=== PATIENT | female | born 1935 | race Caucasian/White ===

== ENCOUNTER → 2017-03-28 | Outpatient (CLI) | payer OTHER ==
[~2017-03-28] MED LIST: AMLO-110 PO; CHOL1000 PO; CITA40TA12 PO; GLC/500 PO; HYDR-5688 PO; HYDR25TA4 PO; TRAZ50TA35 PO
[2017-03-28 13:35] LABS: BASO % 0.4 %; BASO ABS # 0.03 K/uL (0-0.2); COMPLETE YES; EOS % 3.5 %; HEMATOCRIT 42.1 % (37-47); IG% 0.1 %; LYMPH % 17.6 %; LYMPH ABS # 1.35 K/uL (1.2-3.4); MEAN CORPUSCULAR HGB CONC 33.7 g/dl (32-36); MEAN PLATELET VOLUME 10.1 fL (7.4-10.4); MONO % 8.7 %; NEUT % 69.7 %; PLATELET COUNT 225 K/uL (130-400); RED BLOOD COUNT 4.73 M/uL (4.2-5.4); WHITE BLOOD COUNT 7.66 K/uL (4.8-10.8)
[2017-03-28 14:22] LABS: ESTIMATED AVERAGE GLUCOSE 134 mg/dl; HA1C FLAG Normal (Normal)
[2017-03-28 15:04] LABS: BLOOD UREA NITROGEN 13 mg/dl (7-18); CALCIUM 10.2 mg/dl (8.5-10.1); CARBON DIOXIDE 28 mmol/L (21-32); CHLORIDE 100 mmol/L (98-107); CREATININE 0.95 mg/dl (0.60-1.20); GLUCOSE 115 mg/dl (70-99); POTASSIUM 3.6 mmol/L (3.5-5.1); SODIUM 136 mmol/L (136-145)
[2017-03-28 15:13] LABS: CHOLESTEROL 209 mg/dl (0-200); CHOLESTEROL/HDL RATIO 3.6; HDL CHOLESTEROL 58 mg/dl; LDL CHOLESTEROL CALCULATED 131 mg/dl; TRIGLYCERIDES 99 mg/dl (0-150); VERY LOW DENSITY LIPOPROT CALC 20 mg/dl
== END | disposition home or self-care (01) ==
LOC: C.LABBC 11:15
PROVIDERS: ATTEND Physician Assistant Medical
DX: E11.9 Type 2 diabetes mellitus without complications (principal); I10 Essential (primary) hypertension; E78.5 Hyperlipidemia, unspecified; F32.9 Major depressive disorder, single episode, unspecified; R58 Hemorrhage, not elsewhere classified

== ENCOUNTER → 2017-03-30 | Outpatient (CLI) | payer OTHER | END | disposition home or self-care (01) | LOC: C.PATH 08:42 | PROVIDERS: ATTEND Physician Assistant Medical | DX: C85.11 Unspecified B-cell lymphoma, lymph nodes of head, face, and neck (principal); R22.1 Localized swelling, mass and lump, neck ==

== ENCOUNTER → 2017-04-19 | Outpatient (CLI) | payer OTHER ==
--- NOTE | 2017-04-19 18:20 | DIAGNOSTIC IMAGING REPORT ---
CHEST 2 VIEWS ROUTINE CLINICAL HISTORY: 81 years-old Female presenting with lump in the neck, B-cell lymphoproliferative disorder. TECHNIQUE: PA and lateral views of the chest were obtained. COMPARISON: 01/12/2006. FINDINGS: Surgical clips may be present in the right axilla, new from prior. Stable eventration of the right hemidiaphragm. Cardiomediastinal silhouette unremarkable for atherosclerosis of the aortic arch, new from prior. Fullness at the right hilum noted. Stable bandlike opacity at the left lung base, likely scarring. No other focal infiltrate. No pleural effusion or pneumothorax. Osseous structures and upper abdomen normal. IMPRESSION: 1. Fullness at the right hilum, which has an altered configuration from prior exam and could raise concern for hilar lymphadenopathy. 2. No acute cardiopulmonary disease. Electronically signed by: Donte Cornejo M.D. 04/19/2017 6:18 PM Dictated Date/Time: 04/19/2017 6:15 PM
== END | disposition home or self-care (01) ==
LOC: C.RAD 17:36
PROVIDERS: ATTEND Surgery
DX: D47.9 Neoplasm of uncertain behavior of lymphoid, hematopoietic and related tissue, unspecified (principal); R22.1 Localized swelling, mass and lump, neck

== ENCOUNTER 2017-04-25 07:58 | Day surgery (SDC) | payer OTHER ==
[2017-04-24 16:04] VITALS: BMI 25.0
[~2017-04-25] VITALS: Ht 157.5 cm; Wt 62.3 kg
[~2017-04-25 07:58] MED LIST changes: +ATROPINE SULFATE 0.1 MG/ML 5ML SYR IV PRN; +EpHEDrine SULFATE INJ 50 MG/ML AMP IV PRN; +FENTANYL CITRATE INJ 50 MCG/1 ML 2 ML VIAL IV PRN; -HYDR-5688 PO; +HYDROmorphone INJ 1 MG/ML SYR IV PRN; +LACTATED RINGER'S 1000ML 1,000 ML IV SCH; +ONDANSETRON INJ 2 MG/ML 2 ML VIAL IV PRN
[2017-04-25 08:20] VITALS: BP 166/76; PULSE 60; TEMP 36.6; O2SAT 99; Ht 157.5 cm; Wt 62.3 kg
[2017-04-25] MEDS ORDERED: HYDR-5688 PO (09:41)
--- NOTE | 2017-04-25 09:43 | Discharge Instructions ---
Discharge Instructions Date of Service Apr 25, 2017. Visit Reason for Visit: B-Cell Lymphoproliferative Disorder, Lump in Neck Discharge Discharge Diagnosis / Problem: neck node biopsy Discharge Goals Goal(s): Decrease discomfort Activity Recommendations Activity Limitations: as noted below Shower/Bathe: tomorrow Driving or Machine Use: resume 3 days after discharge Anesthesia . Post Anesthesia Instructions: If you have had General Anesthesia or IV Sedation: * Do not drive today. * Resume driving when surgeon permits. * Do not make important decisions or sign legal documents today. * Call surgeon for: 1. Temperature elevations greater than 101 degrees F. 2. Uncontrollable pain. 3. Excessive bleeding. 4. Persistent nausea and vomiting. 5. Medication intolerance (nausea, vomiting or rash). * For nausea and vomiting use only clear liquids such as: tea, soda, bouillon until nausea subsides, then gradually increase diet as tolerated. * If you have any concerns or questions, call your surgeon's office. If physician is unavailable and it is an emergency, call 911 or go to the nearest emergency room. . Instructions / Follow-Up Instructions / Follow-Up Dr. Burns in 1 week, call [phone] for any questions or for an appt if you do not already have one Diet Recommendations Recommended Home Diet: no limitations Pending Studies Studies pending at discharge: yes List of pending studies: pathology Medical Emergencies . Who to Call and When: Medical Emergencies: If at any time you feel your situation is an emergency, please call 911 immediately. . Non-Emergent Contact Non-Emergency issues call your: Surgeon Call Non-Emergent contact if: you have a fever, temperature is above 101.5, your pain is not controlled, wound has increased redness, wound has increased pain . . "Provider Documentation" section prepared by Joaquín Leal. . [place] Drug Monitoring Program Search Results: no issues identified
--- NOTE | 2017-04-25 09:45 | History & Physical Bridge Note ---
H&P Re-Evaluation Bridge Note: I have examined the patient, reviewed the History & Physical and in the interval since the performance of the History & Physical I have noted the following changes of clinical significance: No changes noted pt marked family at bedside
[2017-04-25] MEDS ORDERED: BUPIVACAINE 0.5 % 5 MG/1 ML MPF 30ML VIAL ONE (10:09)
[2017-04-25] MEDS ORDERED: FENTANYL CITRATE INJ 50 MCG/1 ML 2 ML VIAL ONE (10:28)
[2017-04-25] MEDS ORDERED: LIDOCAINE HCL 2% 2 ML VIAL (20MG/ML) ONE (10:41)
[2017-04-25] MEDS ORDERED: PROPOFOL IV EMULSION 10 MG/ML 20 ML VIAL IV ONE (10:41)
[2017-04-25] MEDS ORDERED: ONDANSETRON INJ 2 MG/ML 2 ML VIAL IV PRN (11:00)
[2017-04-25] MEDS ORDERED: MoRPHine SULFATE 2 MG/ML CARP IV PRN (11:00)
[2017-04-25] MEDS ORDERED: LACTATED RINGER'S 1000ML 1,000 ML IV SCH (11:00)
[2017-04-25] MEDS ORDERED: HYDROCODONE/ACETAMOPHEN 5/325MG TAB PO PRN (11:00)
--- NOTE | 2017-04-25 11:01 | [facility] Operative Report ---
Operative Report Operative Date Apr 25, 2017. Pre-Operative Diagnosis Enlarged Lymph Node, neck fna b cell proliferation Post-Operative Diagnosis Same as preoperative Procedure(s) Performed Right Neck Lymph Node Biopsy(incisional) Surgeon Dr. Eleuterio Burns Batcher Operator Surgeon(s) Joaquín Leal PA-C Estimated Blood Loss 0.5ml Findings enlarged lymph node posterior triangle Specimens FRESH: A.) Right Superclavicular Node CULTURE: B.) Right Superclavicular Node for Culture Anesthesia .5% marcaine plain 4 cc and iv sedation Complication(s) None Disposition Recovery Room / PACU Indications b cell lymphproliferation by FNA needs more tissue Description of Procedure right supraclavicular posterior triangle node prepped area and .5% marcaine( total 4cc) infiltrated area alfonso 3 cm between 2 heads of SCM alfonso 3 cm from clavicle few small veins ligate with 3-0 silk an incisional biopsy of node spec alfonso 1.5 cm total send fresh to path and also took cultures a and an afb wound closed with piece surgiceal , interrupted dexan and monocryl ss applied, dressing applied spec to lab ebl less than 1 cc I attest to the content of the Intraoperative Record and any orders documented therein. Any exceptions are noted below.
--- NOTE | 2017-04-25 11:18 | Anesthesiology Progress Note ---
Anesthesia Post Op Note Date & Time Apr 25, 2017 at 11:18 Vital Signs Pain Intensity: 0 Vital Signs Past 12 Hours Date Time Temp Pulse Resp B/P (MAP) Pulse Ox O2 Delivery O2 Flow Rate FiO2 04/25/17 11:10 58 16 138/64 96 Room Air 0 04/25/17 11:02 36.7 61 16 121/60 100 Room Air 0 04/25/17 08:20 36.6 60 20 166/76 (106) 99 Room Air Notes Mental Status: alert / awake / arousable, participated in evaluation Pt Amnestic to Procedure: Yes Nausea / Vomiting: adequately controlled Pain: adequately controlled Airway Patency, RR, SpO2: stable & adequate BP & HR: stable & adequate Hydration State: stable & adequate Anesthetic Complications: no major complications apparent
[2017-04-25 11:30] VITALS: BP 137/67; PULSE 56; TEMP 36.3; O2SAT 99
[2017-04-25 12:00] VITALS: BP 141/64; PULSE 58; TEMP 36.4; O2SAT 100
== END 2017-04-25 12:25 | disposition home or self-care (01) ==
LOC: C.ACU 07:58
PROVIDERS: ATTEND Surgery
DX: C85.11 Unspecified B-cell lymphoma, lymph nodes of head, face, and neck (principal); I10 Essential (primary) hypertension; E78.5 Hyperlipidemia, unspecified; E11.9 Type 2 diabetes mellitus without complications; M85.80 Other specified disorders of bone density and structure, unspecified site; F32.9 Major depressive disorder, single episode, unspecified; Z79.84 Long term (current) use of oral hypoglycemic drugs; Z79.899 Other long term (current) drug therapy

== ENCOUNTER → 2017-05-03 | Outpatient (CLI) | payer OTHER ==
[~2017-05-03] MED LIST changes: -ATROPINE SULFATE 0.1 MG/ML 5ML SYR IV PRN; -EpHEDrine SULFATE INJ 50 MG/ML AMP IV PRN; -FENTANYL CITRATE INJ 50 MCG/1 ML 2 ML VIAL IV PRN; +HYDR-5688 PO; -HYDROmorphone INJ 1 MG/ML SYR IV PRN; -LACTATED RINGER'S 1000ML 1,000 ML IV SCH; -ONDANSETRON INJ 2 MG/ML 2 ML VIAL IV PRN
--- NOTE | 2017-05-03 13:08 | DIAGNOSTIC IMAGING REPORT ---
PET/CT SKULL-THIGH CLINICAL HISTORY: 81 years-old Female with LYMPHOMA. The initial exam. COMPARISON: Chest radiographs 04/19/2017 TECHNIQUE: The patient was injected with 13.3 mCi of 18 fluorodeoxyglucose (FDG) and an emission scan was performed from the skull vertex to the toes. Noncontrast CT was performed for attenuation correction and anatomic localization. The blood glucose level was 117 mg/dl. FINDINGS: HEAD AND NECK: Bulky bilateral jugular chain adenopathy involves level 2, level 3 and 4 lymph nodes. Conglomerate right level 2 adenopathy measures up to 3.4 x 2.7 cm with SUV max of 19. CHEST: Bulky bilateral supraclavicular adenopathy is also seen. Index left supraclavicular conglomerate adenopathy measures up to 2.2 x 6.1 cm with SUV max of 14.9. Hypermetabolic left axillary adenopathy is also seen with nodes measuring up to 1.4 x 1.0 cm with SUV max of 6.0. Bulky mediastinal adenopathy is also seen including pretracheal, subcarinal and bilateral hilar lymph nodes with pretracheal lymph node measuring SUV max of 4.9. ABDOMEN AND PELVIS: Bulky retroperitoneal adenopathy is seen throughout the abdomen and pelvis tracking along the iliac chains and pelvic sidewall including bulky conglomerate left greater than right obturator adenopathy. Enlarged hypermetabolic inguinal lymph nodes are also present. For example, conglomerate retroperitoneal adenopathy at the level of the kidneys measures up to 5.7 x 9.4 cm with SUV max of 12.0. Conglomerate left sidewall adenopathy measures up to 6.3 x 2.2 cm with SUV max of 10.0. The spleen is not significantly enlarged. Physiologic distribution of radiotracer uptake is seen within the liver, kidneys and bowel. MUSCULOSKELETAL SYSTEM AND EXTREMITIES: There is a physiologic distribution of activity within the bone marrow, with no hypermetabolic foci. ADDITIONAL CT FINDINGS: There is a moderate-sized left shoulder joint effusion containing calcific debris and faint increased radiotracer uptake, likely inflammatory. There is skin thickening of the bilateral breasts with minimal FDG uptake, also likely inflammatory. Coronary arterial calcifications are seen. There is dilation of the main pulmonary artery compatible with pulmonary arterial hypertension. No pneumothorax or pleural effusion. There is minimal bibasilar atelectasis. Layering gallstones are seen within a distended gallbladder lumen. There are suggested renal sinus cysts on the left also possibly on the right. Note is made of a hemorrhagic cyst of the posterior interpolar right kidney measures 9 mm. There is moderate atherosclerosis of the abdominal aorta. The urinary bladder is partially collapsed. There is no bowel obstruction. Mesenteric fat and bowel containing hernia is seen along the left lower abdominal wall. Degenerative changes are seen throughout the spine and bilateral hips. There is a small right joint effusion with calcific debris seen about the right hip with faint radiotracer uptake suggesting inflammatory process. IMPRESSION: 1. Markedly hypermetabolic bulky adenopathy involves the neck, supraclavicular regions, chest, abdomen and pelvis compatible with patient's known diagnosis of lymphoma. No evidence of splenic or bone marrow involvement at this time. 2. Incidental findings as above include cholelithiasis, large left shoulder joint effusion and large bowel and mesenteric fat containing lower abdominal wall hernia without obstruction. The above report was generated using voice recognition software. It may contain grammatical, syntax or spelling errors. Electronically signed by: Booker Wallis M.D. 05/03/2017 1:07 PM Dictated Date/Time: 05/03/2017 12:30 PM
== END | disposition home or self-care (01) ==
LOC: C.PET 08:29
PROVIDERS: ATTEND Internal Medicine Hematology & Oncology
DX: C82.11 Follicular lymphoma grade II, lymph nodes of head, face, and neck (principal)

== ENCOUNTER → 2017-09-07 | Outpatient (CLI) | payer OTHER ==
[2017-09-07 17:14] LABS: ALT/SGPT 89 U/L (12-78); AST/SGOT 52 U/L (15-37); BLOOD UREA NITROGEN 13 mg/dl (7-18); BUN/CREATININE RATIO 17.2 (10-20); CALCIUM 10.3 mg/dl (8.5-10.1); CARBON DIOXIDE 30 mmol/L (21-32); CHLORIDE 93 mmol/L (98-107); CREATININE 0.75 mg/dl (0.60-1.20); GLUCOSE 133 mg/dl (70-99); POTASSIUM 3.6 mmol/L (3.5-5.1); SODIUM 126 mmol/L (136-145)
[2017-09-07 17:25] LABS: ALB/GLOB RATIO 0.9 (0.9-2); ALKALINE PHOSPHATASE 290 U/L (45-117)
[2017-09-08 06:15] LABS: ESTIMATED AVERAGE GLUCOSE 128 mg/dl; HA1C FLAG Normal (Normal)
== END | disposition home or self-care (01) ==
LOC: C.LABBC 14:33
PROVIDERS: ATTEND Internal Medicine Geriatric Medicine
DX: E11.9 Type 2 diabetes mellitus without complications (principal); I10 Essential (primary) hypertension; R79.89 Other specified abnormal findings of blood chemistry; C82.90 Follicular lymphoma, unspecified, unspecified site